=== PATIENT | female | born 1995 | race Caucasian/White ===

== ENCOUNTER 2016-05-08 03:45 | Inpatient (IN) | payer OTHER ==
[~2016-05-08] VITALS: Ht 158 cm; Wt 79.4 kg
[2016-05-08] MEDS ORDERED: Lactated Ringer's 1,000 ML IV PRN (04:10)
[2016-05-08] MEDS ORDERED: Sodium Chloride LOK Flush 10 mL Syringe IVFLUSH PRN (04:10)
[2016-05-08] MEDS ORDERED: Oxytocin 30 Units/500 mL LR 30 UNITS in IV Premix 1 EACH IV PRN ×2 (04:10→09:00)
[2016-05-08] MEDS ORDERED: fentaNYL-PF 50 mCg/mL 2 mL Inj IVPUSH PRN ×2 (04:10→08:25)
[2016-05-08] MEDS ORDERED: Carboprost 250 mCg/mL Inj IM PRN ×2 (04:10→09:00)
[2016-05-08] MEDS ORDERED: Methylergonovine 0.2 mg/mL Inj IM PRN ×2 (04:10→09:00)
[2016-05-08] MEDS ORDERED: Hemorrhage Kit, Post Partum XX ONE ×2 (04:10→09:00)
[2016-05-08] MEDS ORDERED: Oxytocin 10 Unit/mL Inj IM PRN ×2 (04:10→09:00)
[2016-05-08] MEDS ORDERED: Clindamycin Inj 900 MG in IV Premix 1 EACH IV SCH ×2 (04:10→13:30)
[2016-05-08] MEDS: Lactated Ringer's 1,000 ML IV SCH ×3 (05:25→08:56)
[2016-05-08 05:27] LABS: Mean Corpuscular Hemoglobin 29.3 pg (27.0-35.0); Mean Corpuscular Volume 88.4 fL (81-100)
[2016-05-08] MEDS ORDERED: Lactated Ringer's 500 ML IV ONE (06:14)
[2016-05-08] MEDS ORDERED: EPHEDrine Sulfate 50 mg/mL Inj IVPUSH PRN (06:15)
[2016-05-08] MEDS ORDERED: Ondansetron 2 mg/mL 2 mL Inj IVPUSH PRN (06:15)
[2016-05-08] MEDS ORDERED: Atropine 1 mg/10 mL (Code) Syringe IVPUSH PRN (06:15)
[2016-05-08] MEDS ORDERED: fentaNYL 2 mCg/mL-Bupiv 0.125% 100 ML EPIDURAL SCH (06:15)
--- NOTE | 2016-05-08 07:12 | PCM.HPANE ---
Patient Data Surgeon Admitting Provider:Stacie Velasquez MD Attending Provider:Stacie Velasquez MD Primary Care Physician:Stacie Velasquez MD Other Provider:[facility] Reason for Visit Term Labor TERM LABOR Ht/WT & BMI Body Mass Index Allergies Coded Allergies: Penicillins (Verified Allergy, Severe, hives, 12/29/14) Past Anesthesia History Anesthesia History: Denies:: Anesthesia Reactions Diabetes History Hx Diabetes?: No MRSA MRSA: Yes Medications Hypertension Medication: No Home Meds Incl Beta Maureen: No No Active Prescriptions or Reported Meds History History of ENT Problems?: No HEENT History: Denies:: Cataracts Dysphagia Sinus Problem Hx of Heart Problems?: Yes Cardiovascular History: Denies:: Cardiac Surgery Chest Pain Congestive Heart Failure Edema Heart Murmur Hypertension Irregular Heartbeat Pacemaker Thrombophlebitis Hx of Respiratory Problem?: No Respiratory History: Denies:: Asthma COPD Chest Surgery Dyspnea Emphysema Hemoptysis Pneumonia Tuberculosis Hx Neurologic Problems?: No Neurological History: Denies:: Alzheimer's Disease CVA Dementia Dizziness Headaches Parkinson's Disease Seizures Hx of GI Problems?: No Gastrointestinal History: Denies:: Diverticulitis Gastroesphageal Reflux Gastrointestinal Bleeding Heartburn Hepatitis Hiatal Hernia Rectal Bleeding Hx of Problems?: Yes Genitourinary History: Positive for:: Urinary Tract Infection Denies:: HX of Hemodialysis Kidney Stones HX of Peritoneal Dialysis: No Female Hx: Denies:: Currently Endometriosis Pelvic Inflammatory Problems with Breasts? Hx Musculoskeletal Problems?: No Musculoskeletal History: Denies:: Back Injury Joint Replacement Musculoskeletal Trauma Hx of Psycho/Social Problems?: No Psycho Social History: Denies:: Anxiety Bipolar Disorder Hx Depression Suicide Attempt Hx Surgeries?: No Hx Any Other Health Problems?: Yes Other History: Positive for:: Hospitalization (blood infection, [facility]--OD on tylenol) Denies:: Cancer Thyroid Disease History Blood Transfusions: Positive for:: Blood Transfuse Reaction (states she got MRSA from blood transfusion) Blood Transfusions Hx Diabetes: No Hx Alcohol Use: NoHx Substance Use: Yes (meth,heroine) Smoking Status: Current Every Day Smoker Have You Smoked inLast 12 mo: Yes Stop/Bang NESHA Risk Assessment: Low Risk, <3 Yes Risk Assessment Category Category 1A: Patient has history of documented sleep apnea, and HAS NOT received any narcotic, sedative or anesthesia administration during this stay. Category 1B: Patient has history of documented sleep apnea, and HAS received any narcotic , sedative or anesthesia administration during this stay Category 2: Patient has SUSPECTED Obstructive Sleep Apnea, and HAS received any narcotic , sedative or anesthesia administration during this stay. Category 3: Patient has SUSPECTED Obstructive Sleep Apnea and HAS NOT received narcotic, sedative or anesthesia administration during this stay. Category 4: Outpatient in Procedural Areas with known sleep apnea or who screen positive for High Risk via the STOP/BANG questionnaire. Exam Exam General Appearance: Alert, Oriented X3, Cooperative, Moderate Distress HEENT/AIRWAY: MP 2 Lungs: Clear to Auscultation, Normal Air Movement Heart: Exam Unremarkable, Regular Rate/Rhythm, No Murmurs/Rubs/Gallops Meds/Labs/Diagnostics Labs Test 05/08/16 05:20 White Blood Count 15.4th/mm3 (3.8-10.1) Red Blood Count 3.96mil/mm3 (3.90-5.20) Hemoglobin 11.6g/dL (12.0-15.6) Hematocrit 35.0% (35.0-46.0) Mean Corpuscular Volume 88.4fL (81-100) Mean Corpuscular Hemoglobin 29.3pg (27.0-35.0) Mean Corpuscular Hemoglobin Concent 33.1% (32.0-37.0) Red Cell Distribution Width 13.1% (12.3-15.4) Platelet Count 393bil/L (150-400) Urine Opiates Screen Positive Urine Methadone Screen Negative Urine Barbiturates Screen Negative Urine Amphetamines Screen Positive Urine Benzodiazepines Screen Negative Urine Cocaine Metabolite Screen Negative Urine Cannabinoids Screen Negative Plan Impression Patient chart reviewed, patient interviewed and anesthestic plan with risks, benefits, and alternatives discussed, and informed consent obtained. ASA Physical Status: ASA3 Severe Disease Anesthetic Plan: Epidural Bene/Risks/Altern/Consents: Yes HP Complete Prior to Induction: Yes Mikey Joaquin MD May 08, 2016 06:14
--- NOTE | 2016-05-08 07:48 | HP ---
[address] [address] HISTORY AND PHYSICAL PATIENT: CADE GREEN : 1995 MR#: [id number] ADMIT: 05/08/2016 JOB ID: [id number] CHIEF COMPLAINT: Labor. HISTORY OF PRESENT ILLNESS: The patient is a 20-year-old, G1, P0, at approximately 38 weeks gestation with relatively poor dates at a high risk . She had ongoing active heroin use throughout and had a total of three visits over the last several months. First visit was at 11 weeks gestation and at that point, she was also noted to be chlamydia positive. She was treated but the partner was not treated. She came in because she was feeling contractions. There was a question of some fluid loss about 8 hours ago. On initial admission she is found to be 8 cm dilated and 90-100% effaced, with an intact bag by palpation. REVIEW OF SYSTEMS: Not currently performed, she is being interviewed by the nurses at the same time. PAST MEDICAL HISTORY: Positive for tobacco abuse, chlamydia treated during this and heroin addiction. MEDICATIONS: None. ALLERGIES: PENICILLIN. SOCIAL HISTORY: See the record. PHYSICAL EXAMINATION: The patient is alert, nontoxic appearing. Abdomen is obviously gravid, nontender. heart tones 140s with moderate variability. [place] shows contractions every 3 minutes. LABORATORIES: A positive, rubella non immune, RPR negative, HIV negative, gonorrhea and chlamydia negative. On repeat check chlamydia positive previously. Pap was ASCUS, cannot rule out high risk. ASSESSMENT: 1, para 0 at term, presumably but with poor dates, poor care, active heroin abuse. PLAN: Would attempt to do antibiotics for GBS unknown status, but there is currently difficulty with IV placement. A second nurse is going to try that. If IVs are unable to be placed and we are unable to do antibiotics, I will probably do active management of labor with artificial rupture of membranes so that we can determine whether or not there is meconium which is probably a larger clinical value then waiting for another hour to see if IV therapy can be started. This will be discussed with the patient. Otherwise expectant management for now. There will obviously be a need for social work and follow up for the baby and CPS intervention.
[2016-05-08] MEDS ORDERED: HYDROcodone-APAP 5-325 mg Tablet PO PRN (09:00)
[2016-05-08] MEDS ORDERED: Witch Hazel-Glycerin Pads TOPICAL PRN (09:00)
[2016-05-08] MEDS ORDERED: Benzocaine (Dermoplast) 20% 60 Gm Spray TOPICAL PRN (09:00)
[2016-05-08] MEDS ORDERED: LANOlin HPA 7 Gm Ointment TOPICAL PRN (09:00)
--- NOTE | 2016-05-08 11:48 | PCM.CHPMED ---
Subjective Date of Service: May 08, 2016 Provider requesting consult: Stacie Velasquez MD Primary Physician: Admitting Physician: Stacie Velasquez MD Primary Care Physician: Stacie Velasquez MD Attending Physician: Stacie Velasquez MD Chief Complaint: Chief Complaint: withdrawal sxs History of Present Illness: Corazon is a now 20 yo with a history of polysubstance IVDA who initially presented to L&D unit for active contractions. She is a current daily Heroin, Meth, and Marijuana user. Reports she is down to about 1/2 ounce 2-3 times per day, she has been using for about 7 years now. She also smokes about 1ppd for the last 5-6 years. She has been admitted multiple times for cellulitis and bacteremia. She reports her last usage was 10pm last night, and notes that she goes into withdrawal fairly quickly. She reports she alternates between feeling very hot or very cold when she is in withdrawal. She reports she originally came in to the hospital to seek Suboxone therapy, but was found to be in active contractions. She has had poor care and was noted to be chlamydia positive at 11 weeks of gestation. She was treated, but her partner was not, and there was not JEISON. She is now and had a fairly unremarkable delivery. She currently reports fatigue and lightheadedness, but denies any fevers, CP, or SOB. She is still interested in starting Suboxone therapy to manage her addiction. Review of Systems: 12 point ROS neg except as stated in HPI. PMH Past Medical History Polysubstance Abuse Cellulitis Bacteremia Tobacco abuse Hx Any Other Health Problems?: NoHx Diabetes: No Surgical History Denies any Home Medications Denies any Allergies: Coded Allergies: Penicillins (Verified Allergy, Severe, hives, 12/29/14) Social History Occupation: NoneHx Alcohol Use: NoHx Substance Use: Yes (meth,heroine) Smoking Status: Current Every Day Smoker Living Arrangement: Other (Currently rents a room from her grandparent's house ) Exam Vital Signs In QS system General: Oriented X3, Cooperative, Other (mildly lethargic) Head: Normal Eyes: PERRLA, EOMI, Scleral Anicteric Mouth: Mouth Normal, Mucous Membr Moist/Garland Chest & Lungs: Coarse breath sounds, Inspiratory wheezes, Other (bibasilar rales noted) Cardiovascular: Regular Rate/Rhythm, Murmur (systolic 4/6) Abdomen: Tender, Non-distended, Soft, Other (Uterus to Umbilicus) Musculoskeletal: Unremarkable, Normal Range of Motion Extremities: Warm, Edema (trace BLE edema) Skin: Other (No rashes) Neurological: Grossly Neurologically Intact, Normal Speech Lymphatic: Other Lymph Nodes (No cervical, supraclavicular, or axillary LN noted) Lab and Diagnostics Result Diagram: 05/08/16 0520 Assessment & Plan Assessment 20 yo now with history of Polysubstance abuse and Tobacco dependence who presented to L&D in active labor. She is now and would like to initiate Suboxone Therapy. Plan #Polysubstance Abuse We will mostly be managing the Heroine withdrawal, which is what she took last night. She does not plan to breastfeed We will use Klonopin 0.5mg TID scheduled and prn to manage her withdrawal symptoms. Will use COWS score to initiate medically supervised opiate withdrawal protocol , but may be unreliable due to symptoms also. Will likely initiate Suboxone 4mg SL tomorrow or when COWS score >12 consistently. Will need to coordinate with GIFT PACKER to set up outpatient Suboxone therapy also. #Tobacco Abuse Nicotine patch daily Encouraged to stop smoking #Cardiac Murmur Very concerning in an IVDA. Could be related to , but no murmurs were documented with previous admissions. Will monitor to see if will resolve , but may need Echocardiogram. # state, As managed by attending turbine engine assembler We thank you for this complex consult, we will continue to follow along. Problems: Pain Evaluation: Adequate Pain Control VTE Prophylaxis: Sub-Q Heparin (Unfractionated), SCDs Resuscitation Status: CPR: Attempt Resuscitation Time spent 45 minutes Attending Statement I have seen and evaluated patient at bedside in addition to directly supervising care provided by resident physician. I agree with above documentation EXCEPTING it is clonidine NOT Klonopin, which is utilized in the setting of opiate withdrawal. Michele Patterson DO May 08, 2016 11:48 Get Foster DO May 09, 2016 15:28
--- NOTE | 2016-05-08 12:36 | NUR ---
Social work: Family center assessment 05/08/16 MOB and FOB: Corazon ChackoSang mensah Jese Baby's name: Janna Khan Reason for SENIOR DATA WAREHOUSE DEVELOPER consult: ILIA had active IV heroin and methamphetamine use throughout . Current living situation: ILIA reports living with her grandparents, Danielito and Katie Pires, in [facility]. FOB does not live with ILIA. Previous children: This is ILIA's first child. Substance use history: ILIA reports active heroin and methamphetamine use throughout her , most recently the 05/07. ILIA reports using for 7-8 years with about 2.5 cumulative years sober throughout that time frame. ILIA reports 3 weeks clean within the last 2 years. UDS is positive for opiates and methamphtamine. ILIA declines any history of treatment but reports attempting to get into [facility] treatment. Mental health history: ILIA denies any history of mental health concerns whatsoever. EMR review shows no admission concerning for mental health. Source of income/state assistance: ILIA is not employed and reports getting $375 dollars from [employer] for [employer] and food [employer]. DV/abuse history: ILIA denies any current or previous abuse. Supports: ILIA reports FOB and both maternal and paternal family are supportive of her, however no family is present currently and FOB was not present during delivery. Assessment/disposition: MOB who actively used IV heroin until the night prior to delivery. SENIOR DATA WAREHOUSE DEVELOPER met with MOB who is groggy but compliant with conversation. Pt has had no treatment and reports minimal attempts to obtain both treatment during as well as care. ILIA is interested in treatment presently. Otherwise, ILIA reports having good family and social support and certainly may function better when clean. SENIOR DATA WAREHOUSE DEVELOPER discussed available treatment options and CPS involvement. ILIA acknowledges this and will participate with them when they arrive. SENIOR DATA WAREHOUSE DEVELOPER made report to Ole Wilder from CPS intake who reports that he believes ILIA will be seen today, 05/08. ILIA has a history of AMA discharges from the medical floor and RN and medical receptionist biller aware. AMELIA Lopez Addendum: 05/08/16 at 1236 by PAMELA WHITLOCK SS Amended: Links added.
--- NOTE | 2016-05-08 13:19 | PCM.OBVAG ---
Vaginal Delivery Date of Service May 08, 2016 Pre Operative Diagnosis Pre Operative Diagnosis active labor at term with spontaneous rupture of membrane; active heroin use prior to and during ; GBS status unknown. Post Operative Diagnosis Post Operative Diagnosis Normal vaginal delivery; heroin habit; GBS unknown. Procedure Procedure: Cervical dilation was complete at 8:01, normal vaginal delivery at 8:31, and the placenta delivered intact at 8:39 AM today; head position: DAMARIS; the cried vigorously right after and she was placed onto mother's chest immediately; the 3-v cord was clamped with 1 min delay. Apg=9/9, wt 3180 g. Estimated blood loss: 350 ml; 2nd degree midline perineum tear was repaired using 3-0 Vicryl sutures. The membrane was ruptured spontaneously prior to admission at ~22:00 yesterday, produced light meconium. Epidural anesthesia was placed when she was 8 cm dilated. pt's push was effective, and she had a successful delivery after having pushed less than half hr. Both the mother and the remained in stable conditions after the delivery. Sponge count was correct; needles and sharps were disposed appropriately. GBS was unknown; Dr. Earnest Foster was consulted for heroin withdrawal. Dr. Heard was present for the delivery. Obstetical Procedure: Normal Spontaneous Vaginal Delivery, Repair of Perineal Tear (2nd degree) Aquaculture Farm Manager/Mixer Whipped Topping Provider and Mixer Whipped Topping: Dr. Velasquez and nursing staff Indication for Procedure Induction: Active labor Findings Obstetrical Findings: (Female), Cord (3 Vessel), Weight (3180 grams), Presentation (DAMARIS), 1 minute (9), 5 minutes (9), Placenta ( Intact/Normal), Perineal Laceration (2nd degree, midline) Analgesia/Medications Obstetrical Anesthesia: Epidural Specimen Specimens: Placenta (for Heroin use during ) Blood Loss & Administration Estimated Blood Loss: 350 Blood Admin during procedure: No Post Procedure Plan Post delivery Condition: Mom stable, Baby stable to nursery (watch for withdrawal due to maternal heroin habit) Stacie Velasquez MD May 08, 2016 13:19
--- NOTE | 2016-05-08 22:40 | NUR ---
shift note This RN took over care at 1900. Pt has been sleeping most of the shift, with periods of wakefulness. Pts pain under control, not experiencing tremor, hallucinations, pain. Pt is experiencing anxiety. Klonipin appears to be effective at this time. ZACHARY Baker at the .
[2016-05-09 07:55] LABS: BASOPHILS % (AUTO) 0.1 % (0-3); EOSINOPHILS % (AUTO) 0.9 % (0-5); MONOCYTES % (AUTO) 4.1 % (4-12); Mean Corpuscular Hemoglobin 29.6 pg (27.0-35.0); Mean Corpuscular Volume 88.9 fL (81-100); NEUTROPHILS % (AUTO) 78.3 % (40-74); Platelet Count 356 bil/L (150-400)
[2016-05-09] MEDS ORDERED: Ondansetron 2 mg/mL 2 mL Inj IVPUSH PRN (10:45)
[2016-05-09] MEDS ORDERED: Ondansetron 8 mg ODT Tablet PO PRN (10:50)
[2016-05-09] MEDS ORDERED: Buprenorphine 2 mg SL Tablet SL ONE ×5 (10:50→16:25)
[2016-05-09] MEDS ORDERED: cloNIDine 0.1 mg Tablet PO PRN (12:35)
--- NOTE | 2016-05-09 12:43 | PCM.PNMED ---
Subjective Date of Service May 09, 2016 Subjective Pt seen and examined at bedside. In Morning pt noted mild to moderate withdrawal symptoms, however by early afternoon she has developed worsening symptoms including nausea with repeated episodes of vomiting, sweats/chills, diaphoresis and muscle cramping/spasm. Her anxiety level is high. She is now ~ 36 hours from last use. Exam Vital Signs AM Exam demonstrated mildly uncomfortable patient lying in bed, yawning frequently, diaphoretic, anxious. COWS: 15 Current examination: Pt in evident distress with diaphoresis present Pupils dilated, (+)nasal congestion Heart rate in 50's, bradycardic. ?ejection murmur. Lungs course breath sounds diffusely without consolidation. Abd: (+)spasm but no guarding, Hypoeractive BS Ext. Well perfused, pink. No splinter hemorrhages of nails noted. COWS = 26, consistent with Moderate severe withdrawal. IVs and Medications Medications Reviewed: Medications were reviewed in detail Lab and Diagnostics Result Diagram: 05/09/16 0735 05/09/16 0735 Assessment & Plan 20 yo now (Now) with history of Polysubstance abuse and Tobacco dependence who presented to L&D in active labor. She is now and would like to initiate Suboxone Therapy. Plan #Polysubstance Abuse - Pt currently demonstrating evidence of moderate severe active opiate withdrawal. 2 attempts at provided low dose Buprenorphine resulted in nausea, possible worsening of symptoms. - Will provide supportive measures at this time: Clonidine 0.1mg TID PRN in addition to Bentyl for abdominal cramps, Flexeril for muscle cramps, and previously RX'd Zofran for nausea. - Will consider second trial later today if condition stabilizes, again of 2mg Q30 minutes X2, with subsequently dosing to provided 16mg today. - Moving forward, Buprenorphine 16mg SL daily will likely be required to control symptoms. - I have discussed cause with FP who will coordinate out patient prescribing once discharged. #Tobacco Abuse Nicotine patch daily Encouraged to stop smoking #Cardiac Murmur Very concerning in an IVDA. Could be related to , but no murmurs were documented with previous admissions. Will monitor to see if will resolve , but may consider Echocardiogram with any evidence of infective endocarditis clinically #Hep C - Newly DX'd, - Followed by PCP. . # state, As managed by attending physical therapy aides teacher We thank you for this complex consult, we will continue to follow patient during hospitalization to manage issues related to her opiate dependency. Pain Evaluation: Adequate Pain Control VTE Prophylaxis: Sub-Q Heparin (Unfractionated), SCDs Resuscitation Status: CPR: Attempt Resuscitation Time spent 45 minutes Get Foster DO May 09, 2016 12:43
--- NOTE | 2016-05-09 13:44 | NUR ---
Social Work Note: NORI Pt has a history of heroin use and expressed interest in outpatient CD treatment at discharge. Pt agreed to CD assessment with LOKI Fox. Pt signed NORI and GAMEWELL OPERATOR called and left a voicemail for LOKI Fox. AMELIA Hartman, AAC
[2016-05-09] MEDS: Lactated Ringer's 1,000 ML IV SCH ×2 (16:56→18:30)
--- NOTE | 2016-05-09 17:35 | PROG NOTE ---
[address] [address] PROGRESS NOTE PATIENT: CADE GREEN : 1995 MR#: [id number] ADMIT: 05/08/2016 JOB ID: [id number] DATE: 05/09/2016 SUBJECTIVE: The patient has done fairly well since delivery medically. She is able to take p.o. Her bleeding has been normal. She has not been breast feeding because of the positive amphetamine in the urine. CPS and social work have both been involved. The baby is currently rooming with her, her mother has also on helping. The patient went through a significant withdrawal earlier today, and with hospitalist consult, was started on buprenorphine. She has had a decrease in her withdrawal symptoms since and buprenorphine is currently being titrated based on her symptoms. OBJECTIVE: Her vital signs have been stable despite withdrawal, with pulse in the 50s. She has been afebrile. The patient is in no acute distress. She is easily arousable. She is yawning and sweating during the interview. She is appropriate. She does allow her mother to place the infant on her chest and seems to be responding appropriately to baby girl. Cardiovascular: Regular rate and rhythm. Not assessed for murmur. Abdomen: Soft, nontender. Uterus is at midline at umbilicus and firms easily with gentle massage. Lower extremities without edema. LABORATORY: Show patient positive hepatitis C antibody. She has nonreactive hepatitis surface B surface antibody, nonreactive to HIV. Nonreactive to RPR. Gonorrhea and chlamydia urine testing are both pending. CMP is within normal limits, except for a low albumin of 2.9 and a low protein of 5.4. Alk phos slightly elevated to 22; that is likely related. AST and ALT are normal. White count 13.7, hematocrit 33.6, neutrophils 78%. Lymphocytes 16%. ASSESSMENT AND PLAN: 1. A 20-year-old G1 now P1, status post normal spontaneous vaginal delivery. Main complication is history of heroin use. She is being transitioned to Suboxone currently. She expresses interest in Suboxone therapy. We will try to facilitate that as best we can, which will have to be done as an outpatient. CPS and social work are both involved, as well as the pediatricians, in deciding disposition of the . 2. Hepatitis B surface antibody negative. 3. Not currently breast feeding. The patient expressed an interest in doing that in the future. We will go ahead and get her started on the breast pump now. That may be possible if she can show sobriety later. 4. Hepatitis C antibody positive. Likely will be positive for hepatitis C viral load as well, though that testing will be done as an outpatient. Discussed with the patient today. Significance discussed as well as availability of treatment. Need for followup emphasized. Hepatitis B surface antigen added to lab orders to clarify potential hepatitis B status. Hospitalist consultation greatly appreciated in the care of this patient. Wool Mixer team is also greatly appreciated for their care of the . [place]
--- NOTE | 2016-05-09 20:43 | NUR ---
Shift note/[employer] recovery consult Carlie, from [facility] present this shift to interview patient for placement to treatment. PAtient was referred to parenting inpatient treatment and instructed to contact [facility] on Wednesday for help getting set up with Subutex. She was also instructed to follow up with Carlie on Wednesday about placement. Patient observed to be appropriate with at beginning of shift. She was holding baby and talking to her. RN asked patient how she felt when baby cried, to which patient replied "I like it. When she cries, I know she's ok. When she's quiet, I worry about her." Patient attempted to feed baby with RN present, baby had just eaten and was not interested. When RN returned to room later on in shift, patient's mother, grandmother, and siblings were present. Patient was less involved in care of baby, and sat in bed with baby in her lap. Patient's mother was preparing a bottle for baby. Breast pump provided for patient, RN verified patient understood that baby was not to receive breast milk and mother replied, "yes, I will dump it until I'm clean". PT denies pain, vitals stable, COWS scoring discontinued after last subutex dose per hospitalist recommendation.
[2016-05-10] MEDS ORDERED: Buprenorphine 2 mg SL Tablet SL SCH (08:30)
--- NOTE | 2016-05-10 10:11 | PCM.PNMED ---
Subjective Date of Service May 10, 2016 Subjective Patient doing well this morning. Denies any withdrawal symptoms and has no complaints. She did much better after increasing the Suboxone dosage yesterday. Exam Vital Signs T36.7, BP 131/84, HR 90, RR18 Exam General: Oriented X3, Cooperative, Head: Normal Eyes: PERRLA, EOMI, Scleral Anicteric Mouth: Mouth Normal, Mucous Membr Moist/Octavia Chest & Lungs: Coarse breath sounds, Inspiratory wheezes, Other (bibasilar rales noted) Cardiovascular: Regular Rate/Rhythm, Systolic ejection milder today Abdomen: Tender, Non-distended, Soft, Other (Uterus to Umbilicus) Musculoskeletal: Unremarkable, Normal Range of Motion Neurological: Grossly Neurologically Intact, Normal Speech IVs and Medications Medications Reviewed: Medications were reviewed in detail Lab and Diagnostics Result Diagram: 05/09/16 0735 05/09/16 0735 Assessment & Plan 20 yo now (Now) with history of Polysubstance abuse and Tobacco dependence who presented to L&D in active labor. She is now and would like to initiate Suboxone Therapy. Plan #Polysubstance Abuse - Pt currently demonstrating evidence of moderate severe active opiate withdrawal. 2 attempts at provided low dose Buprenorphine resulted in nausea, possible worsening of symptoms. - Will provide supportive measures at this time: Clonidine 0.1mg TID PRN in addition to Bentyl for abdominal cramps, Flexeril for muscle cramps, and previously RX'd Zofran for nausea. - She did well on the Buprenorphine 8mg SL yesterday afternoon. - Moving forward, Buprenorphine 16mg SL daily will likely be required to control symptoms. - FP will plan to coordinate further outpatient therapy. #Tobacco Abuse Nicotine patch daily Encouraged to stop smoking #Cardiac Murmur Very concerning in an IVDA. Could be related to , but no murmurs were documented with previous admissions. Murmur milder on examination today, will continue to monitor, if any other s/s of Infectious Endocarditis occurs, then obtain Echocardiogram #Hep C - Newly DX'd, - Followed by PCP. . # state, As managed by attending checkering machine operator We thank you for this complex consult, we will continue to follow patient during hospitalization to manage issues related to her opiate dependency. Pain Evaluation: Adequate Pain Control VTE Prophylaxis: Sub-Q Heparin (Unfractionated), SCDs Resuscitation Status: CPR: Attempt Resuscitation Time spent 35 minutes Attending Statement I have seen and evaluated patient at bedside in addition to directly supervising care provided by resident physician. I agree with above documentation. Michele Patterson DO May 10, 2016 10:11 Get Foster DO May 10, 2016 16:31
--- NOTE | 2016-05-10 11:43 | PCM.ANEP1 ---
Post Anesthesia Phase 1 PACU Phase 1 Assessment Date of Service: May 08, 2016 Anesthetic Administered: Epidural Level of Alertness: Awake, talking HOLLY's with Equal Strength: Yes Pain: No Pain Scale Score: 0 Nausea or Vomiting: No Oxygen Delivery: Room Air Lungs: Clear to Auscultation, Normal Air Movement Javi Tanner MD May 10, 2016 11:43
--- NOTE | 2016-05-10 11:44 | PCM.ANEP2 ---
Post Anesthesia Evaluation ASA/CMS Post Anesthesia VS in Patient's Normal Range?: Yes Resp Stable; Airway Patent?: Yes CV Function & Hydration Stable: Yes Mental Status Recovered?: Yes Pain control Satisfactory?: Yes N/V Control Satisfactory?: Yes Javi Tanner MD May 10, 2016 11:43
[2016-05-10] MEDS ORDERED: Measles-Mumps-Rubella Vaccine 0.5 mL Inj SUBQ ONE (14:35)
[2016-05-10 21:32] VITALS: BP 130/84; PULSE 90; RESP 22
--- NOTE | 2016-05-10 21:34 | PCM.DIOB ---
Obstetrical Disch Instruction Date of Service: May 10, 2016 Dates of Hospitalization Date of Hospital Admission May 08, 2016 at 04:05 Providers Admitting Physician: Stacie Velasqeuz MD Primary Care Physician: Stacie Velasquez MD Attending Physician: Stacie Velasquez MD Discharge Diagnosis Problems: (1) Normal delivery Status: Acute ICD Code: O80 (2) Intravenous drug abuse Onset Date: 07/04/2014 Status: Acute ICD Code: F19.10 (3) Hepatitis C antibody positive in blood Status: Acute ICD Code: [id number] Diet Discharge Diet: No restrictions Activity Discharge Activity-General: Pelvic Rest for 6 weeks Dressing and Incisional Care Hygiene: May shower, Perineal care, Sitz bath, Dermoplast spray, Witch Mliadis pads, Ice Additional Instructions Additional Instructions Lab testing done in hospital show presence of hepatitis C antibody, which means that you have been exposed to hepatitis C infection and will likely need treatment for this infection. Testing was done for RPR, chlamydia, gonorrhea, hepatitis B, HIV and none of those infections were found. Follow Up Plan Follow-up Provider (F9): Stacie Velasquez MD Follow-up appointment: Days (2-4 (early appointment to discuss family planning options), long-term follow-up will need to include evaluation for treatment for hepatitis C, follow-up on abnormal pap from ) Call your provider for: Fever or Chills, Shortness of breath, Heavy vaginal bleeding, Heavy bleeding, Excessive constipation, Vaginal discomfort (Swollen, painful leg), Red painful breasts Additional Information 05/11/16, patient to be seen by recovery program (has information re: [facility] and [facility]) Earnest Heredia MD May 10, 2016 21:27
--- NOTE | 2016-05-11 14:26 | PATH ---
SURGICAL PATHOLOGY Attending Physician:Stacie Velasquez MD CASE STATUS: Signed Out PATIENT NAME: CADE GREEN PID: [id number] : 1995 DATE COLLECTED:05/08/2016 23:24 SPECIMEN: Placenta CLINICAL HISTORY: HISTORY OF HEROIN AND OTHER DRUG USE DURING 1). PLACENTA FINAL DIAGNOSIS: 1.PLACENTA WITH UMBILICAL CORD AND MEMBRANES: 1. PLACENTA: 595 GRAMS. MULTIPLE PLACENTAL INFARCTS INVOLVING APPROXIMATELY 10% OF THE PLACENTAL DISK. Negative for significant inflammation and significant vascular lesions. 2.UMBILICAL CORD: 4.2 CM IN LENGTH WITH A FURCATE INSERTION 4.5 CM FROM THE PLACENTAL EDGE. THREE NORMAL BLOOD VESSELS. Negative for significant inflammation. 3. MEMBRANES: RUPTURED AT THE FREE PLACENTAL EDGE. MILD ACUTE DECIDUITIS WITH FOCAL AREAS OF ACUTE CHORIONITIS. ICD10 CODE O43.813 GROSS DESCRIPTION: The specimen is received in formalin, labeled with the patient's name and consists of an intact placenta and includes placental disc (595 g, 18.8 x 15.5 x 3.3 cm), umbilical cord (length-4.2 cm, diameter-1.3 x 0.8 cm) and membranes. The membranes are ruptured at the free edge of the placenta and are translucent. The umbilical cord has a furcate insertion 4.5 cm from the edge of the placenta and contains 3 vessels. The surface is tough, rough and bosselated with multiple pale pagan opacities (0.5 x 0.2 cm-4.0 x 2.5) involving approximately 25% of the surface. The maternal surface is dark maroon with normal cotyledon formation. The placental disc is spongy and contains multiple irregular fibrous hemorrhagic areas (1.1 x 0.9 x 0.5 cm-2.2 x 1.5 x 1.1 cm) involving approximately 10% of the disc. No nodules or masses are identified. Section code: (A, B) edge of placenta with membranes, umbilical cord; (C-D, E-F, G-I) placenta, 5 full thickness sections. 05/09/16 JM MICRO DESCRIPTION: See diagnosis. ICD-9 CODES: CPT CODES: 1: 01154 Electronically Signed Out Baljit Gramajo MD [facility] [address], [place] [address] Technical component performed at [facility], [address], [place], [address]
--- NOTE | 2016-05-12 23:27 | DIS ---
[address] [address] DISCHARGE SUMMARY PATIENT: CADE GREEN : 1995 MR#: [id number] ADMIT: 05/08/2016 JOB ID: [id number] DIS: 05/10/2016 ADMIT DIAGNOSES: 1. 1, para 0, active labor. 2. Heroin abuse, IVDU, ongoing. 3. History of Chlamydia infection, treated. 4. Smoker, tobacco. DISCHARGE DIAGNOSES: 1. 1, now para 1, status post normal spontaneous vaginal delivery. 2. Narcotic dependence, on buprenorphine. 3. Hepatitis C, antibody positive. 4. Smoker, tobacco, nicotine dependence.. CONSULTATIONS DURING HOSPITALIZATION: Hospitalist consultation, Dr. Get Foster. HOSPITAL COURSE: For details of initial part of hospitalization please see history and physical by Dr. Hearn and vaginal delivery note by Dr. Velasquez. Briefly, the patient presented in active labor and was at 8 cm on admission. She delivered within a few hours. Delivery was without any immediate complications. The patient expressed interested in Suboxone treatment (she had not done that previously, though did have a year of sobriety while she was living in the [facility], otherwise having been using heroin since the age of 14-15). Hospital consultation was obtained and the patient received Subutex induction at the 60 mg dose on May 09, 2016 and received the second dose on May 10, 2016, and appeared to have minimal withdrawal symptoms on that dosing. Other significant events during hospitalization were positive hepatitis C antibody testing (I reviewed with the patient the significance of that as a sign of probable hepatitis C infection, and the availability of treatment for that if hepatitis C infection confirmed on follow-up). She was tested for syphilis, gonorrhea, chlamydia, hepatitis B and HIV and none of those infections were found. She was hepatitis B surface antibody negative and will need a hepatitis B vaccine after discharge. She also received measles/mumps/rubella vaccination during hospitalization for a nonimmune rubella titer during care. Urine tox screen showed opiates and amphetamines, though confirmation of those was still pending at time of discharge. Because of the presence of opiates and amphetamines, the patient was not , though she did express interest in eventually doing that if she could do so safely and so was started on a breast pump. hematocrit was 33.6. She had normal platelets and normal peripartum white blood cell count. A CMP done notable for slightly elevated alkaline phosphatase (consistent with ) as well as low albumin of 2.9. The rest of CMP including AST and ALT was normal. The patient met extensively with chemical unit operator as well as social work during hospitalization, CPS was involved and will be helping with decisions about disposition of infant. The patient and did show some bonding behavior during hospitalization. The was still being followed at time of discharge for potential heroin withdrawal. The intention had been for the patient to stay until May 11, 2016 so that she could receive a dose of Subutex on the Wednesday prior to discharge to allow her to more easily be transitioned to outpatient Suboxone program. However, on the evening of May 10, 2016, she insisted that she needed to go outside to smoke, and declined nicotine replacement therapy and stated that she wanted to be discharged, and decision was made to do so, as it was medically reasonable to do so. On the day of discharge, the patient was ambulating without problems, good p.o. intake. Normal bowel and bladder function. Her bleeding was normal lochia. She had no fever or any other apparent complications. OBJECTIVE: Her vital signs were stable. She was afebrile. She was in no acute distress. Pleasant, cooperative. Cardiovascular: Rate and rhythm, S1-S2 heard, no murmurs, gallops, rubs (the murmur heard previously during admission was not present on discharge, consistent with a -related murmur). Lungs: With expiratory wheezes bilaterally, no rhonchi or wheezes. Good air movement. Abdomen soft, nontender. No hepatosplenomegaly. Uterus at the midline, umbilicus, firmness with palpation. Lower extremities without edema and nontender. ASSESSMENT AND PLAN: The patient is discharged home, emphasized followup for her, specifically with Suboxone Clinic within 24 hours to allow her to avoid withdrawal, she has contact information for a number of Suboxone providers in the area, and those providers have been contacted and do have space available for her within this time frame. She also is to follow up at [facility] within the week so that we can start the process of her evaluation for her hepatitis C antibody positive status, as well as start her on family planning (she expressed interest in LARC, such as Nexplanon). She will also need followup for her abnormal Pap obtained during . [place]
== END 2016-05-10 21:48 | disposition home or self-care (01) | DRG 774 ==
LOC: FBCO 03:45 → FBC 04:05
PROVIDERS: ADMIT Family Medicine; ATTEND Family Medicine
PROC: 10E0XZZ Delivery of Products of Conception, External Approach (ICD-10-PCS; principal; 2016-05-08)
PROC: 0KQM0ZZ Repair Perineum Muscle, Open Approach (ICD-10-PCS; 2016-05-08)
PROC: 10907ZC Drainage of Amniotic Fluid, Therapeutic from Products of Conception, Via Natural or Artificial Opening (ICD-10-PCS; 2016-05-08)
DX: O99.324 Drug use complicating childbirth (principal); O99.42 Diseases of the circulatory system complicating childbirth; F11.23 Opioid dependence with withdrawal; O70.1 Second degree perineal laceration during delivery; O99.334 Smoking (tobacco) complicating childbirth; F17.200 Nicotine dependence, unspecified, uncomplicated; B19.20 Unspecified viral hepatitis C without hepatic coma; O75.89 Other specified complications of labor and delivery; R01.1 Cardiac murmur, unspecified; F15.10 Other stimulant abuse, uncomplicated; O09.33 Supervision of pregnancy with insufficient antenatal care, third trimester; Z3A.38 38 weeks gestation of pregnancy; Z37.0 Single live birth

== ENCOUNTER 2016-07-18 01:08 | Emergency (ER) | payer OTHER ==
[~2016-07-18] VITALS: Ht 160 cm; Wt 62.7 kg
[2016-07-18 01:28] VITALS: BP 127/82; PULSE 85; RESP 16; O2SAT 98
--- NOTE | 2016-07-18 03:01 | ED.REPORT ---
HPI-Rash / Abscess Date of Service July 18, 2016 ED Provider: Jameson Siddiqi MD Pt is a 21 y.o. female with a hx of hepatitis C and IV drug use who presents to the ED c/o an abscess to her right axilla. Pt states that she was started on Clindamycin several weeks ago for an abscess but lost the abx for 2-3 days. She states that she completed the abx on 07/10. She states that a new abscess is now forming in her right axilla. Nursing Notes Stated Complaint: R ARMPIT ABSCESS Chief Complaint: General Complaint Nursing Notes Reviewed: Yes Allergies: Coded Allergies: Penicillins (Verified Allergy, Severe, hives, 12/29/14) Scheduled Clindamycin (Clindamycin) 300 Mg Capsule 600 MG PO TID Mupirocin Nasal Oint (Bactroban Nasal Oint) 1 Gm Oint...g. 1 APPLIC NASAL BID General Time Seen by MD: 03:01 Chief Complaint Abscess Hx Obtained From: Patient Arrived By: Walk-in Past Medical History Past Medical History Tylenol overdose IV drug use Opioid dependence Hepatitis C Past Surgical History none reported Smoking History Current Every Day Smoker Social History Drug Use: IV drugs, Meth Other Social History: Lives with parents Ambulatory Status Independent Review of Systems Abscess, right axilla Skin: Reports Rash (Right axilla) Complete sys rev & neg: except as marked. Physical Exam Initial Vital Signs Vital Signs (First) Date Time Temp Pulse Resp B/P Pulse Ox O2 Delivery O2 Flow Rate FiO2 07/18/16 01:28 36.8 85 16 127/82 98 Room Air Initial VS: Reviewed General/Constitutional: Awake, Alert, Well appearing, Well developed, Well hydrated, Well nourished, Not toxic appearing Behavior: Positive: Anxious, Tearful Skin: Atraumatic, Warm, Dry Abscess #1 Location/Condition: Positive: Axilla R... (Tender) Procedures Incision & Drainage Abscess Time: 03:38 Consent / Setup / Site Prep: Informed consent provided, Consent from patient , Time-out performed, Hand hygiene observed, Stand sterile technique, Standard surgical scrub, Sterile drapes applied Location of Abscess: Right axilla Skin Preparation Agent: Betadine Local Anesthesia: Lidocaine 1% Post-Procedure / Complications: Dressing applied, No complications, Condition improved, Patient stable Re-Eval/Medical Decision Med Decision/Clinical Course 21-year-old female with document of MRSA presents with an axillary abscess. She just wants antibiotics for this, but it was explained to her that that will not result in sooner and will likely progress anyway. She ultimately consents to a minor incision and drainage procedure. Anesthesia was achieved with 1% lidocaine locally, although she was barely able to tolerate this. Ultimately, was completely numb and was draining without difficulty. Rather than packet, which will require repeat visit and likely cause some pain, elected to make her T incision and leave it open with bacitracin dressings. She tolerated the procedure ultimately fairly well and is discharged on stable condition. She was begun again with clindamycin. Provided also with Bactroban nasal ointment. Source of Hx: Old records Re-Evaluation/Progress : Time of Eval: 03:38 Re-Evaluation/Progress Note: Procedure performed. Pt states she is allergic to Penicillin and states she typically is prescribed Clindamycin. Discussed plan for discharge, pt understands and agrees with plan. Counseled Regarding: Diagnosis, Need for follow-up, When/why to return to ED Discharge & Departure Impression: Primary Impression: Abscess Additional Impressions: MRSA carrier Hepatitis C antibody positive in blood IV drug abuse Disposition: Home Discharge Condition All VS Reviewed: Yes Condition: Improved Patient Instructions: Abscess (ED) Additional Instructions: There is no realistic expectation that we can completely clear you of MRSA. This problem has been studied, and it has proved to be impossible. You are not a general health risk to anybody else including your children, unless you have active abscesses or draining lesions. Once this abscess heals, you will not be a risk from normal contact. Generally, MRSA inhabits the mucosa of your nose as a colonizer, and is very difficult to eradicate from every area of the body. Begin two Capsules clindamycin three times daily and complete a ten day course. Begin mupirocin ointment in the nose twice daily. Follow-up with your doctor and with Public health. Hot soak and then bacitracin and gauze bandage to the abscess that was drained tonight. Do that three or four times daily until healed. Referrals: Stacie Velasquez MD (PCP) Scribe Attestation Portions of this note were transcribed by Jillian Hamilton. I, Dr. Siddiqi personally performed the history, physical exam and medical decision-making; I reviewed and confirmed the accuracy of the information in the transcribed note. Signed by: Emelia Choudhary, 07/18/16 and 0427. copies to: Stacie Velasquez MD, Christopher W MD July 18, 2016 03:01 JILLIAN HAMILTON July 18, 2016 03:04
[2016-07-18] MEDS ORDERED: CLIN-78 PO (04:03)
[2016-07-18] MEDS ORDERED: MUPI1OIN5 NASAL (04:03)
== END 2016-07-18 04:12 | disposition home or self-care (01) ==
LOC: SED 01:08
DX: L02.411 Cutaneous abscess of right axilla (principal); R76.8 Other specified abnormal immunological findings in serum; F15.10 Other stimulant abuse, uncomplicated; F11.20 Opioid dependence, uncomplicated; B19.20 Unspecified viral hepatitis C without hepatic coma; F17.200 Nicotine dependence, unspecified, uncomplicated; Z22.322 Carrier or suspected carrier of Methicillin resistant Staphylococcus aureus; Z88.0 Allergy status to penicillin